=== PATIENT | male | born 1955 | race Asian ===

== ENCOUNTER 2018-09-04 19:03 | Inpatient (IN) | payer MEDICAID, OTHER ==
[2018-09-04 19:26] LABS: ADD MAN DIFF? NO
[2018-09-04] MEDS: SOD CHLORIDE 0.9% 1,000 ML IV (19:30)
[2018-09-04 19:35] LABS: WHITE BLOOD COUNT 8.1 10^3/ul (4.8-10.8)
[2018-09-04 19:35] LABS: BASOPHILS % 0.1 % (0.0-2.0); EOSINOPHILS # 0.5 10^3/ul (0.0-0.5); EOSINOPHILS % 5.8 % (0.0-7.0); HEMATOCRIT 47.8 % (42.0-52.0); HEMOGLOBIN 15.6 g/dl (14.0-18.0); LYMPHOCYTES # 1.5 10^3/ul (0.8-2.9); LYMPHOCYTES % 18.5 % (15.0-51.0); MEAN CORPUSCULAR HEMOGLOBIN 27.3 pg (29.0-33.0); MEAN CORPUSCULAR HGB CONC 32.6 g/dl (32.0-37.0); MEAN CORPUSCULAR VOLUME 83.7 fl (82.0-101.0); MEAN PLATELET VOLUME 9.6 fl (7.4-10.4); MONOCYTE # 0.3 10^3/ul (0.3-0.9); MONOCYTES % 3.8 % (0.0-11.0); NEUTROPHIL # 5.8 10^3/ul (1.6-7.5); NEUTROPHILS % 71.6 % (39.0-77.0); PLATELET COUNT 273 10^3/UL (140-415); RED BLOOD COUNT 5.71 10^6/ul (4.70-6.10); RED CELL DISTRIBUTION WIDTH 12.5 % (11.5-14.5)
[2018-09-04 19:53] LABS: ANION GAP 15 (5-13); BLOOD UREA NITROGEN 22 mg/dl (7-20); CALCIUM 9.6 mg/dl (8.4-10.2); CARBON DIOXIDE 27 mmol/L (21-31); CHLORIDE 92 mmol/L (97-110); CREATININE 1.76 mg/dl (0.61-1.24); Estimated GFR 39 mL/min (>60); MAGNESIUM 2.2 mg/dl (1.7-2.5); PHOSPHORUS 4.9 mg/dl (2.5-4.9); POTASSIUM 5.5 mmol/L (3.5-5.1); SODIUM 134 mmol/L (135-144)
[2018-09-04 20:07] LABS: GLUCOSE 598 mg/dl (70-220)
[2018-09-04] MEDS: INSULIN LISPRO 100 UNIT/ML VIAL SC (20:53)
[2018-09-04] MEDS: LACTATED RINGER'S 1,000 ML IV (21:00)
[2018-09-04 21:09] LABS: MODE ROOM AIR; MetHgb Venous 1.8 %; Sample Type Blood venous; Site VENOUS LINE; Venous COHb 1.3 %; Venous Fraction OxyHgb 24.2 %; Venous Total Hemglobin 15.1 g/dl
[2018-09-04] MEDS ORDERED: ONDANSETRON 4 MG INJ IV (22:30)
[2018-09-04 22:48] LABS: TROPONIN-I 0.122 ng/ml (0.000-0.120)
[2018-09-04] MEDS: ASPIRIN 81 MG TAB PO (22:58)
[2018-09-04] MEDS: ACETAMINOPHEN 325 MG TAB PO (22:58)
[2018-09-05] MEDS ORDERED: ENOXAPARIN 100 MG/ML SYG SC
[2018-09-05] MEDS ORDERED: ONDANSETRON 4 MG INJ IV
[2018-09-05] MEDS ORDERED: IPRATROPIUM (HFA) 12.9 GM INHALER INH
[2018-09-05] MEDS ORDERED: NACL 0.9% 3 ML SYG IV
[2018-09-05] MEDS ORDERED: NITROGLYCERIN (SL) 0.4 MG TAB SL
[2018-09-05] MEDS ORDERED: GLUCOSE GEL 15 GRAM TUBE BUCCAL (00:04)
[2018-09-05] MEDS ORDERED: GLUCOSE GEL 15 GRAM TUBE PO ×2 (00:04)
[2018-09-05] MEDS ORDERED: DEXTROSE 50% 50 ML SYRINGE IV ×2 (00:04)
[2018-09-05] MEDS ORDERED: GLUCAGON 1 MG INJ IM (00:04)
[2018-09-05] MEDS: INSULIN ASPART [NOVOLOG] 3 ML PEN SC ×6 (00:47→20:13)
[2018-09-05] MEDS: INSULIN GLARGINE [LANTus] (100 UNITS/ML) SYG SC ×2 (00:48→20:13)
[2018-09-05] MEDS: ENOXAPARIN 60 MG/0.6 ML SYG SC ×3 (00:55→20:13)
[2018-09-05] MEDS: DEXTROSE 5%-0.45% NACL 1,000 ML IV ×2 (01:05→12:49)
[2018-09-05 01:10] LABS: CREATINE KINASE 386 IU/L (23-200)
[2018-09-05 01:22] LABS: CK INDEX 0.6; CK-MB 2.27 ng/ml (0.0-2.4)
[2018-09-05 01:26] LABS: TROPONIN-I 0.157 ng/ml (0.000-0.120)
[2018-09-05] MEDS ORDERED: ACCU-CHEK XX (02:00)
[2018-09-05 07:04] LABS: ADD MAN DIFF? NO
[2018-09-05 07:15] LABS: WHITE BLOOD COUNT 9.5 10^3/ul (4.8-10.8)
[2018-09-05 07:15] LABS: BASOPHILS % 0.1 % (0.0-2.0); EOSINOPHILS # 0.2 10^3/ul (0.0-0.5); EOSINOPHILS % 2.3 % (0.0-7.0); HEMOGLOBIN 14.4 g/dl (14.0-18.0); LYMPHOCYTES # 2.2 10^3/ul (0.8-2.9); LYMPHOCYTES % 22.8 % (15.0-51.0); MEAN CORPUSCULAR HEMOGLOBIN 27.5 pg (29.0-33.0); MEAN CORPUSCULAR HGB CONC 33.5 g/dl (32.0-37.0); MEAN CORPUSCULAR VOLUME 82.2 fl (82.0-101.0); MEAN PLATELET VOLUME 9.7 fl (7.4-10.4); MONOCYTE # 0.5 10^3/ul (0.3-0.9); MONOCYTES % 4.8 % (0.0-11.0); NEUTROPHIL # 6.6 10^3/ul (1.6-7.5); NEUTROPHILS % 69.7 % (39.0-77.0); PLATELET COUNT 253 10^3/UL (140-415); RED BLOOD COUNT 5.23 10^6/ul (4.70-6.10); RED CELL DISTRIBUTION WIDTH 12.9 % (11.5-14.5)
[2018-09-05 07:30] LABS: HEMOGLOBIN A1C 13.4 % (0-5.9)
[2018-09-05 07:34] LABS: ALANINE AMINOTRANSFERASE 16 IU/L (13-69); ALBUMIN 3.3 g/dl (3.3-4.9); ALKALINE PHOSPHATASE 95 IU/L (42-121); ANION GAP 12 (5-13); ASPARTATE AMINO TRANSFERASE 20 IU/L (15-46); BILIRUBIN,INDIRECT 0.2 mg/dl (0-1.1); BILIRUBIN,TOTAL 0.2 mg/dl (0.2-1.3); BLOOD UREA NITROGEN 19 mg/dl (7-20); CARBON DIOXIDE 27 mmol/L (21-31); CHLORIDE 102 mmol/L (97-110); CHOL/HDL RATIO 5.4 RATIO; CHOLESTEROL 179 mg/dl (100-200); CREATININE 1.34 mg/dl (0.61-1.24); Estimated GFR 53 mL/min (>60); GLUCOSE 140 mg/dl (70-220); HDL CHOLESTEROL 33 mg/dl (30-78); LDL CHOLESTEROL,CALCULATED 128 mg/dl; MAGNESIUM 1.9 mg/dl (1.7-2.5); POTASSIUM 3.8 mmol/L (3.5-5.1); SODIUM 141 mmol/L (135-144); TOTAL PROTEIN 6.6 g/dl (6.1-8.1); TRIGLYCERIDES 88 mg/dl (0-149)
[2018-09-05 07:38] LABS: CREATINE KINASE 450 IU/L (23-200)
[2018-09-05 07:51] LABS: CK INDEX 0.5; CK-MB 2.39 ng/ml (0.0-2.4)
[2018-09-05 07:53] LABS: TROPONIN-I 0.133 ng/ml (0.000-0.120)
[2018-09-05] MEDS: DOCUSATE SODIUM 100 MG CAP PO ×2 (08:21→20:08)
[2018-09-05] MEDS: ASPIRIN 81 MG TAB PO (08:21)
[2018-09-05] MEDS: ACETAMINOPHEN 325 MG TAB PO ×2 (08:26→12:53)
[2018-09-05 12:30] LABS: TROPONIN-I 0.095 ng/ml (0.000-0.120)
[2018-09-05 13:37] LABS: ADD UMIC YES; UR AMORPHOUS CRYSTAL FEW /HPF (NONE SEEN); UR ASCORBIC ACID NEGATIVE (NEGATIVE); UR BACTERIA MANY /HPF (NONE SEEN); UR BILIRUBIN (Dip) NEGATIVE (NEGATIVE); UR BLOOD (Dip) 3+ mg/dL (NEGATIVE); UR CLARITY CLOUDY (CLEAR); UR COLOR RED (YELLOW); UR GLUCOSE (Dip) NEGATIVE (NEGATIVE); UR KETONES (Dip) NEGATIVE (NEGATIVE); UR LEUKOCYTE ESTERASE (Dip) 3+ Leu/ul (NEGATIVE); UR NITRITE (Dip) NEGATIVE (NEGATIVE); UR RBC 37 /HPF (0-5); UR SPECIFIC GRAVITY (Dip) 1.019 (1.003-1.030); UR TOTAL PROTEIN (Dip) 3+ mg/dl (NEGATIVE); UR UROBILINOGEN (Dip) NEGATIVE (NEGATIVE); UR WBC > 182 /HPF (0-5)
[2018-09-05 13:53] LABS: SODIUM,URINE RANDOM 110 mmol/L (30-90)
[2018-09-05 13:53] LABS: POTASSIUM,URINE RANDOM 35.2 mmol/L (25-125)
[2018-09-05 18:42] LABS: TROPONIN-I 0.084 ng/ml (0.000-0.120)
[2018-09-05] MEDS: ATORVASTATIN 80 MG TAB PO (20:07)
[2018-09-05] MEDS: GABAPENTIN 300 MG CAP PO (20:07)
[2018-09-06] MEDS: hydrALAzine 20 MG INJ IV (01:09)
[2018-09-06 03:21] LABS: ADD MAN DIFF? NO
[2018-09-06 03:24] LABS: WHITE BLOOD COUNT 8.7 10^3/ul (4.8-10.8)
[2018-09-06 03:24] LABS: BASOPHILS % 0.1 % (0.0-2.0); EOSINOPHILS # 0.5 10^3/ul (0.0-0.5); EOSINOPHILS % 5.4 % (0.0-7.0); HEMATOCRIT 44.7 % (42.0-52.0); HEMOGLOBIN 14.9 g/dl (14.0-18.0); LYMPHOCYTES # 1.8 10^3/ul (0.8-2.9); LYMPHOCYTES % 20.6 % (15.0-51.0); MEAN CORPUSCULAR HEMOGLOBIN 27.5 pg (29.0-33.0); MEAN CORPUSCULAR HGB CONC 33.3 g/dl (32.0-37.0); MEAN CORPUSCULAR VOLUME 82.6 fl (82.0-101.0); MEAN PLATELET VOLUME 9.6 fl (7.4-10.4); MONOCYTE # 0.4 10^3/ul (0.3-0.9); MONOCYTES % 4.6 % (0.0-11.0); NEUTROPHILS % 69.1 % (39.0-77.0); PLATELET COUNT 267 10^3/UL (140-415); RED BLOOD COUNT 5.41 10^6/ul (4.70-6.10); RED CELL DISTRIBUTION WIDTH 13.1 % (11.5-14.5)
[2018-09-06 03:42] LABS: ANION GAP 10 (5-13); BLOOD UREA NITROGEN 15 mg/dl (7-20); CALCIUM 9.1 mg/dl (8.4-10.2); CARBON DIOXIDE 25 mmol/L (21-31); CHLORIDE 102 mmol/L (97-110); CREATININE 1.29 mg/dl (0.61-1.24); Estimated GFR 56 mL/min (>60); GLUCOSE 267 mg/dl (70-220); POTASSIUM 3.9 mmol/L (3.5-5.1); SODIUM 137 mmol/L (135-144)
[2018-09-06 03:51] LABS: TROPONIN-I 0.066 ng/ml (0.000-0.120)
[2018-09-06 04:43] LABS: PHOSPHORUS 3.9 mg/dl (2.5-4.9)
[2018-09-06 04:43] LABS: MAGNESIUM 1.7 mg/dl (1.7-2.5)
[2018-09-06] MEDS: DOCUSATE SODIUM 100 MG CAP PO ×2 (08:38→20:31)
[2018-09-06] MEDS ORDERED: ASPIRIN 325 MG TAB PO (09:00)
[2018-09-06 10:59] LABS: UR COLOR RED (YELLOW)
[2018-09-06 11:00] LABS: UR CLARITY BLOODY (CLEAR)
[2018-09-06 11:31] LABS: UR BILIRUBIN (Dip) NEGATIVE (NEGATIVE); UR GLUCOSE (Dip) 2+ mg/dL (NEGATIVE); UR KETONES (Dip) TRACE mg/dL (NEGATIVE); UR TOTAL PROTEIN (Dip) 3+ mg/dl (NEGATIVE); URINE SPECIFIC GRAVITY (Dip) 1.015 (1.003-1.030)
[2018-09-06 11:32] LABS: ADD UMIC YES; UR ASCORBIC ACID NEGATIVE (NEGATIVE); UR BLOOD (Dip) 3+ mg/dL (NEGATIVE); UR LEUKOCYTE ESTERASE (Dip) 2+ Leu/ul (NEGATIVE); UR NITRITE (Dip) NEGATIVE (NEGATIVE); UR UROBILINOGEN (Dip) NEGATIVE (NEGATIVE)
[2018-09-06 11:34] LABS: URINE RBCS >200 /HPF (0)
[2018-09-06 11:35] LABS: UR BACTERIA FEW /HPF (NONE SEEN)
[2018-09-06] MEDS: ATORVASTATIN 80 MG TAB PO (20:31)
[2018-09-06] MEDS: GABAPENTIN 300 MG CAP PO (20:32)
[2018-09-06] MEDS: INSULIN ASPART [NOVOLOG] 3 ML PEN SC (20:38)
[2018-09-06] MEDS: INSULIN GLARGINE [LANTus] (100 UNITS/ML) SYG SC (20:39)
[2018-09-06] MEDS: ACCU-CHEK XX (21:00)
[2018-09-07] MEDS: ACCU-CHEK XX ×4 (07:25→21:00)
[2018-09-07] MEDS: INSULIN ASPART [NOVOLOG] 3 ML PEN SC ×7 (07:56→21:00)
[2018-09-07] MEDS: DOCUSATE SODIUM 100 MG CAP PO ×2 (08:17→20:16)
[2018-09-07] MEDS: ENOXAPARIN 40 MG/0.4 ML SYG SC (12:25)
[2018-09-07] MEDS: MAGNESIUM SULFATE 2 GM/50 ML 50 ML IVPB (13:20)
[2018-09-07] MEDS: GABAPENTIN 300 MG CAP PO (20:20)
[2018-09-07] MEDS: ATORVASTATIN 80 MG TAB PO (21:30)
[2018-09-08] MEDS: INSULIN GLARGINE [LANTus] (100 UNITS/ML) SYG SC ×2 (06:53→20:48)
[2018-09-08 07:05] LABS: ADD MAN DIFF? NO
[2018-09-08 07:08] LABS: WHITE BLOOD COUNT 7.8 10^3/ul (4.8-10.8)
[2018-09-08 07:08] LABS: BASOPHILS % 0.1 % (0.0-2.0); EOSINOPHILS # 0.7 10^3/ul (0.0-0.5); EOSINOPHILS % 8.7 % (0.0-7.0); HEMATOCRIT 45.5 % (42.0-52.0); HEMOGLOBIN 14.9 g/dl (14.0-18.0); LYMPHOCYTES # 2.6 10^3/ul (0.8-2.9); LYMPHOCYTES % 32.8 % (15.0-51.0); MEAN CORPUSCULAR HEMOGLOBIN 27.4 pg (29.0-33.0); MEAN CORPUSCULAR HGB CONC 32.7 g/dl (32.0-37.0); MEAN CORPUSCULAR VOLUME 83.8 fl (82.0-101.0); MEAN PLATELET VOLUME 9.7 fl (7.4-10.4); MONOCYTE # 0.5 10^3/ul (0.3-0.9); MONOCYTES % 6.1 % (0.0-11.0); NEUTROPHIL # 4.1 10^3/ul (1.6-7.5); PLATELET COUNT 262 10^3/UL (140-415); RED BLOOD COUNT 5.43 10^6/ul (4.70-6.10); RED CELL DISTRIBUTION WIDTH 13.2 % (11.5-14.5)
[2018-09-08] MEDS: ACCU-CHEK XX ×4 (07:25→21:23)
[2018-09-08 07:56] LABS: ANION GAP 12 (5-13); BLOOD UREA NITROGEN 26 mg/dl (7-20); CALCIUM 9.5 mg/dl (8.4-10.2); CARBON DIOXIDE 29 mmol/L (21-31); CHLORIDE 99 mmol/L (97-110); Estimated GFR 36 mL/min (>60); GLUCOSE 111 mg/dl (70-220); MAGNESIUM 2.1 mg/dl (1.7-2.5); PHOSPHORUS 6.5 mg/dl (2.5-4.9); POTASSIUM 4.8 mmol/L (3.5-5.1); SODIUM 140 mmol/L (135-144)
[2018-09-08] MEDS: DOCUSATE SODIUM 100 MG CAP PO ×2 (08:23→20:12)
[2018-09-08] MEDS: INSULIN ASPART [NOVOLOG] 3 ML PEN SC ×7 (08:38→20:14)
[2018-09-08] MEDS: ENOXAPARIN 40 MG/0.4 ML SYG SC (08:39)
[2018-09-08] MEDS: ATORVASTATIN 80 MG TAB PO (20:12)
[2018-09-08] MEDS: GABAPENTIN 300 MG CAP PO (20:13)
[2018-09-09 06:07] LABS: ADD MAN DIFF? NO
[2018-09-09 06:09] LABS: BASOPHILS % 0.1 % (0.0-2.0); EOSINOPHILS # 0.7 10^3/ul (0.0-0.5); EOSINOPHILS % 8.5 % (0.0-7.0); HEMOGLOBIN 14.2 g/dl (14.0-18.0); LYMPHOCYTES # 2.4 10^3/ul (0.8-2.9); LYMPHOCYTES % 30.8 % (15.0-51.0); MEAN CORPUSCULAR HEMOGLOBIN 27.6 pg (29.0-33.0); MEAN CORPUSCULAR VOLUME 83.5 fl (82.0-101.0); MEAN PLATELET VOLUME 9.4 fl (7.4-10.4); MONOCYTE # 0.5 10^3/ul (0.3-0.9); MONOCYTES % 5.8 % (0.0-11.0); NEUTROPHIL # 4.3 10^3/ul (1.6-7.5); NEUTROPHILS % 54.4 % (39.0-77.0); PLATELET COUNT 241 10^3/UL (140-415); RED BLOOD COUNT 5.15 10^6/ul (4.70-6.10)
[2018-09-09 06:09] LABS: WHITE BLOOD COUNT 7.9 10^3/ul (4.8-10.8)
[2018-09-09 06:37] LABS: ANION GAP 11 (5-13); BLOOD UREA NITROGEN 30 mg/dl (7-20); CARBON DIOXIDE 24 mmol/L (21-31); CHLORIDE 103 mmol/L (97-110); CREATININE 1.77 mg/dl (0.61-1.24); Estimated GFR 39 mL/min (>60); GLUCOSE 189 mg/dl (70-220); POTASSIUM 4.3 mmol/L (3.5-5.1); SODIUM 138 mmol/L (135-144)
[2018-09-09] MEDS: INSULIN ASPART [NOVOLOG] 3 ML PEN SC ×7 (07:55→21:00)
[2018-09-09] MEDS: ACCU-CHEK XX ×4 (08:18→21:41)
[2018-09-09] MEDS: ACETYLCYSTEINE 600 MG CAP PO ×2 (09:00→21:30)
[2018-09-09] MEDS: ENOXAPARIN 40 MG/0.4 ML SYG SC (09:00)
[2018-09-09] MEDS: DOCUSATE SODIUM 100 MG CAP PO ×2 (09:00→21:30)
[2018-09-09] MEDS ORDERED: LIDOCAINE 1% (MDV) 20 ML INJ (09:34)
[2018-09-09] MEDS ORDERED: IODIXANOL LOCM 100 ML BTL (09:34)
[2018-09-09] MEDS ORDERED: HEPARIN 1000 UNITS/ML 10 ML INJ (09:34)
[2018-09-09] MEDS ORDERED: MIDAZOLAM 1 MG/ML 2 ML INJ (09:35)
[2018-09-09] MEDS ORDERED: FENTAnyl 50 MCG/ML VIAL (09:35)
[2018-09-09] MEDS ORDERED: VERAPAMIL 5 MG INJ (09:35)
[2018-09-09] MEDS ORDERED: NITROGLYCERIN (IC) 100 MCG/ML INJ (09:35)
[2018-09-09] MEDS ORDERED: CLOPIDOGREL 300 MG TAB (10:30)
[2018-09-09] MEDS ORDERED: ASPIRIN 325 MG TAB (10:31)
[2018-09-09] MEDS ORDERED: BIVALIRUDIN 250MG /NS 50 ML 100 ML IVPB (10:38)
[2018-09-09] MEDS: SOD CHLORIDE 0.9% 1,000 ML IV ×2 (12:09→18:18)
[2018-09-09] MEDS: GABAPENTIN 300 MG CAP PO (21:29)
[2018-09-09] MEDS: ATORVASTATIN 80 MG TAB PO (21:31)
[2018-09-09] MEDS: INSULIN GLARGINE [LANTus] (100 UNITS/ML) SYG SC (21:32)
[2018-09-10 06:51] LABS: ADD MAN DIFF? NO
[2018-09-10 07:06] LABS: BASOPHILS % 0.2 % (0.0-2.0); EOSINOPHILS # 0.6 10^3/ul (0.0-0.5); EOSINOPHILS % 6.4 % (0.0-7.0); HEMATOCRIT 43.8 % (42.0-52.0); HEMOGLOBIN 14.1 g/dl (14.0-18.0); LYMPHOCYTES # 1.8 10^3/ul (0.8-2.9); LYMPHOCYTES % 18.2 % (15.0-51.0); MEAN CORPUSCULAR HEMOGLOBIN 27.3 pg (29.0-33.0); MEAN CORPUSCULAR HGB CONC 32.2 g/dl (32.0-37.0); MEAN CORPUSCULAR VOLUME 84.9 fl (82.0-101.0); MEAN PLATELET VOLUME 9.7 fl (7.4-10.4); MONOCYTE # 0.5 10^3/ul (0.3-0.9); MONOCYTES % 4.8 % (0.0-11.0); NEUTROPHIL # 6.8 10^3/ul (1.6-7.5); NEUTROPHILS % 70.1 % (39.0-77.0); PLATELET COUNT 251 10^3/UL (140-415); RED BLOOD COUNT 5.16 10^6/ul (4.70-6.10); RED CELL DISTRIBUTION WIDTH 12.8 % (11.5-14.5)
[2018-09-10 07:06] LABS: WHITE BLOOD COUNT 9.7 10^3/ul (4.8-10.8)
[2018-09-10] MEDS: ACCU-CHEK XX ×3 (07:25→17:03)
[2018-09-10 07:29] LABS: ANION GAP 9 (5-13); BLOOD UREA NITROGEN 26 mg/dl (7-20); CALCIUM 8.9 mg/dl (8.4-10.2); CARBON DIOXIDE 28 mmol/L (21-31); CHLORIDE 106 mmol/L (97-110); CREATININE 1.58 mg/dl (0.61-1.24); Estimated GFR 44 mL/min (>60); GLUCOSE 122 mg/dl (70-220); PHOSPHORUS 3.9 mg/dl (2.5-4.9); POTASSIUM 4.8 mmol/L (3.5-5.1); SODIUM 143 mmol/L (135-144)
[2018-09-10] MEDS: INSULIN ASPART [NOVOLOG] 3 ML PEN SC ×6 (07:55→18:00)
[2018-09-10] MEDS: DOCUSATE SODIUM 100 MG CAP PO (08:24)
[2018-09-10] MEDS: ASPIRIN 81 MG TAB PO (08:24)
[2018-09-10] MEDS: CLOPIDOGREL 75 MG TAB PO (08:24)
[2018-09-10] MEDS: ACETYLCYSTEINE 600 MG CAP PO (08:24)
[2018-09-10] MEDS: ENOXAPARIN 40 MG/0.4 ML SYG SC (08:26)
== END 2018-09-10 19:54 | disposition home or self-care (01) | DRG 247 ==
LOC: E/R 19:03 → TEL 09-09 11:36
PROC: 027035Z Dilation of Coronary Artery, One Artery with Two Drug-eluting Intraluminal Devices, Percutaneous Approach (ICD-10-PCS; principal; 2018-09-09 09:05)
PROC: 4A023N7 Measurement of Cardiac Sampling and Pressure, Left Heart, Percutaneous Approach (ICD-10-PCS; 2018-09-09 09:05)
PROC: B211YZZ Fluoroscopy of Multiple Coronary Arteries using Other Contrast (ICD-10-PCS; 2018-09-09 09:05)
PROC: 4A033BC Measurement of Arterial Pressure, Coronary, Percutaneous Approach (ICD-10-PCS; 2018-09-09 09:05)
DX: I21.4 Non-ST elevation (NSTEMI) myocardial infarction (principal); N17.9 Acute kidney failure, unspecified; I42.9 Cardiomyopathy, unspecified; E10.65 Type 1 diabetes mellitus with hyperglycemia; I12.9 Hypertensive chronic kidney disease with stage 1 through stage 4 chronic kidney disease, or unspecified chronic kidney disease; E10.22 Type 1 diabetes mellitus with diabetic chronic kidney disease; N18.9 Chronic kidney disease, unspecified; R31.0 Gross hematuria; I25.10 Atherosclerotic heart disease of native coronary artery without angina pectoris; E87.5 Hyperkalemia; E86.0 Dehydration; E78.5 Hyperlipidemia, unspecified; R55 Syncope and collapse; F17.200 Nicotine dependence, unspecified, uncomplicated; S00.83XA Contusion of other part of head, initial encounter; W18.30XA Fall on same level, unspecified, initial encounter; Y92.019 Unspecified place in single-family (private) house as the place of occurrence of the external cause
CPT/HCPCS: 36415; 70450; 71045; 76775; 80048; 80053; 80061; 81001; 82436; 82550; 82553; 82803; 82962; 83036; 83735; 84100; 84133; 84300; 84443; 84484; 85025; 93005; 93306; 93458; 93571; 96360; 96361; 96372; 99291-25; G0378